=== PATIENT | male | born 1985 | race Caucasian/White ===

== ENCOUNTER 2016-09-26 06:11 | Emergency (ER) | payer MEDICAID ==
[~2016-09-26] VITALS: Ht 185.4 cm; Wt 103.8 kg
[~2016-09-26 06:11] MED LIST: ALBU8.5H5 INH; AMOX-291 PO; AMOX1TAB64 PO; BACL-19 PO; FLUO40CA9 PO; FOLI-17 PO; HYDR-3240 PO; HYDR50TA13 PO; IBUP800T PO; LORA-446 PO; ONDA4TAB7 PO; OXYC-302 PO; PROM25TA10 PO; QUET25TA PO; THIA100T10 PO; THIA100T6 PO
[2016-09-26] MEDS ORDERED: ONDANSETRON ODT 4 MG ONE (06:29)
[2016-09-26] MEDS ORDERED: ONDANSETRON ODT 4 MG PO ONE (06:30)
[2016-09-26 07:00] VITALS: BP 127/77
== END 2016-09-26 07:10 | disposition home or self-care (01) ==
LOC: ED 07:04
DX: J41.1 Mucopurulent chronic bronchitis (principal); F10.20 Alcohol dependence, uncomplicated; Y90.9 Presence of alcohol in blood, level not specified
CPT/HCPCS: 71020; 99284; Q0162

== ENCOUNTER 2016-11-04 20:40 | Emergency (ER) | payer MEDICAID | END 2016-11-04 22:09 | LOC: ED 20:40 | DX: S90.811A Abrasion, right foot, initial encounter (principal); J45.909 Unspecified asthma, uncomplicated; Z88.6 Allergy status to analgesic agent; Z90.49 Acquired absence of other specified parts of digestive tract; X50.9XXA Other and unspecified overexertion or strenuous movements or postures, initial encounter; Y93.89 Activity, other specified; Y99.8 Other external cause status; Y92.89 Other specified places as the place of occurrence of the external cause | CPT/HCPCS: 99282 ==

== ENCOUNTER 2017-03-31 09:55 | Emergency (ER) | payer MEDICAID ==
[~2017-03-31] VITALS: Ht 185.4 cm; Wt 99.1 kg
[~2017-03-31 09:55] MED LIST changes: +IBUP-1223 PO; -IBUP800T PO
[2017-03-31] MEDS ORDERED: MAALOX/HYOSCYAMINE/LIDOCAINE 45 ML BTL ONE (10:25)
[2017-03-31] MEDS ORDERED: ONDANSETRON 2MG/ML, 2ML ONE (10:25)
[2017-03-31] MEDS ORDERED: FAMOTIDINE 20 MG/2 ML ONE (10:25)
[2017-03-31] MEDS ORDERED: FAMOTIDINE 20 MG/2 ML IVP ONE (10:30)
[2017-03-31] MEDS ORDERED: ONDANSETRON 2MG/ML, 2ML IVPush ONE (10:30)
[2017-03-31] MEDS ORDERED: SODIUM CHLORIDE 0.9% 1,000ML IVBOLUS ONE (10:30)
[2017-03-31] MEDS ORDERED: MAALOX/HYOSCYAMINE/LIDOCAINE 45 ML BTL PO ONE (10:30)
[2017-03-31 10:32] LABS: HEMOGLOBIN 17.4 g/dL (13.7-18.0); WHITE BLOOD COUNT 7.3 x10^3/uL (3.4-10)
[2017-03-31 10:39] VITALS: BP 137/82
[2017-03-31 10:45] LABS: BLOOD UREA NITROGEN 15 mg/dL (7-18)
[2017-03-31 10:48] LABS: ASPARTATE AMINO TRANSFERASE 23 U/L (15-37)
== END 2017-03-31 12:22 | disposition home or self-care (01) ==
LOC: ED 10:42
DX: R10.13 Epigastric pain (principal); J45.909 Unspecified asthma, uncomplicated; Z90.49 Acquired absence of other specified parts of digestive tract
CPT/HCPCS: 36415; 80053; 83690; 85025; 96361; 96374; 96375; 99284; J2405; J7030; S0028

== ENCOUNTER 2017-10-06 06:25 | Emergency (ER) | payer MEDICAID, OTHER ==
[~2017-10-06] VITALS: Ht 185.4 cm; Wt 105.9 kg
[2017-10-06 07:21] LABS: MICROSCOPIC AUTO
[2017-10-06 07:22] LABS: CULTURE INDICATED? NO
[2017-10-06 07:32] LABS: BASOPHILS # (AUTO) 0.01 x10^3/uL (0-0.1); BASOPHILS % (AUTO) 0 % (0-1); EOSINOPHILS # (AUTO) 0.04 x10^3/uL (0-0.4); EOSINOPHILS % (AUTO) 1 % (1-7); LYMPHOCYTES # (AUTO) 0.93 x10^3/uL (1-3.4); LYMPHOCYTES % (AUTO) 14 % (22-44); MD NO; MEAN CORPUSCULAR HEMOGLOBIN 31.1 pg (27.5-34.5); MEAN CORPUSCULAR HGB CONC 33.9 g/dL (33.2-36.2); MEAN CORPUSCULAR VOLUME 91.6 fL (81-97); MEAN PLATELET VOLUME 6.7 fL (7.4-10.4); MONOCYTES # (AUTO) 0.61 x10^3/uL (0.2-0.8); MONOCYTES % (AUTO) 9 % (2-9); NEUTROPHILS # (AUTO) 5.06 x10^3/uL (1.8-6.8); NEUTROPHILS % (AUTO) 76 % (42-75); PLATELET COUNT 282 x10^3/uL (130-400); RED BLOOD COUNT 5.17 x10^6/uL (4.38-5.82); RED CELL DISTRIBUTION WIDTH 13.4 % (9.4-14.8)
[2017-10-06 07:41] LABS: ALANINE AMINOTRANSFERASE 27 U/L (12-78); ANION GAP 8 mmol/L (5-15); CALCIUM 8.5 mg/dL (8.5-10.1); CHLORIDE 110 mmol/L (98-107); CREATININE 1.03 mg/dL (0.7-1.3)
[2017-10-06 07:44] LABS: ALKALINE PHOSPHATASE 71 U/L (45-117); BILIRUBIN,TOTAL 1.2 mg/dL (0.2-1.0); TOTAL PROTEIN 7.6 g/dL (6.4-8.2)
[2017-10-06] MEDS ORDERED: TAMSULOSIN 0.4 MG CAP.ER.24H ONE (08:39)
[2017-10-06] MEDS ORDERED: KETOROLAC 30 MG/1 ML ONE (08:39)
[2017-10-06 08:48] VITALS: BP 123/68
[2017-10-06] MEDS ORDERED: KETOROLAC 30 MG/1 ML IVPush ONE (09:00)
[2017-10-06] MEDS ORDERED: TAMSULOSIN 0.4 MG CAP.ER.24H PO ONE (09:00)
[2017-10-06] MEDS ORDERED: KETOROLAC 30 MG/1 ML IM ONE (09:00)
== END 2017-10-06 09:04 | disposition home or self-care (01) ==
LOC: ED 08:58
DX: N20.0 Calculus of kidney (principal); N23 Unspecified renal colic; J45.909 Unspecified asthma, uncomplicated; F10.20 Alcohol dependence, uncomplicated; F31.9 Bipolar disorder, unspecified; Z90.49 Acquired absence of other specified parts of digestive tract
CPT/HCPCS: 36415; 74176; 80053; 81001; 85025; 93005; 96372; 99285; J1885; Q0177

== ENCOUNTER 2018-03-05 00:41 | Emergency (ER) | payer OTHER ==
[~2018-03-05] VITALS: Ht 185.4 cm; Wt 104.3 kg
[~2018-03-05 00:41] MED LIST changes: -THIA100T6 PO; +THIA100T67 PO
[2018-03-05 00:44] VITALS: BP 139/91
== END 2018-03-05 01:22 | disposition left against medical advice (07) ==
LOC: ED 01:00
DX: K29.21 Alcoholic gastritis with bleeding (principal); F10.120 Alcohol abuse with intoxication, uncomplicated; Z90.49 Acquired absence of other specified parts of digestive tract; F31.9 Bipolar disorder, unspecified; Z72.9 Problem related to lifestyle, unspecified
CPT/HCPCS: 99281

== ENCOUNTER 2019-08-05 11:22 | Emergency (ER) | payer SELFPAY ==
[~2019-08-05] VITALS: Ht 185.4 cm; Wt 109.9 kg
[~2019-08-05 11:22] MED LIST changes: -HYDR50TA13 PO; +HYDR50TA99 PO; -QUET25TA PO; +QUET25TA7 PO
[2019-08-05] MEDS ORDERED: SODIUM CHLORIDE FLUSH 10ML SYR IVF ONE (12:00)
[2019-08-05] MEDS ORDERED: DIPHENHYDRAMINE 50 MG/ML, 1ML IVPush ONE (12:00)
[2019-08-05] MEDS ORDERED: METOCLOPRAMIDE 5 MG/ML, 2ML IVPush ONE (12:00)
[2019-08-05] MEDS ORDERED: DIPHENHYDRAMINE 50 MG/ML, 1ML ONE (12:14)
[2019-08-05] MEDS ORDERED: METOCLOPRAMIDE 5 MG/ML, 2ML ONE (12:15)
[2019-08-05 12:31] LABS: BASOPHILS # (AUTO) 0.07 x10^3/uL (0-0.1); BASOPHILS % (AUTO) 1 % (0-1); EOSINOPHILS # (AUTO) 0.01 x10^3/uL (0-0.4); EOSINOPHILS % (AUTO) 0 % (1-7); LYMPHOCYTES # (AUTO) 1.49 x10^3/uL (1-3.4); LYMPHOCYTES % (AUTO) 28 % (22-44); MD NO; MEAN CORPUSCULAR HEMOGLOBIN 31.6 pg (27.5-34.5); MEAN CORPUSCULAR HGB CONC 34.3 g/dL (33.2-36.2); MEAN CORPUSCULAR VOLUME 92.2 fL (81-97); MEAN PLATELET VOLUME 7.1 fL (7.4-10.4); MONOCYTES # (AUTO) 0.36 x10^3/uL (0.2-0.8); MONOCYTES % (AUTO) 7 % (2-9); NEUTROPHILS # (AUTO) 3.43 x10^3/uL (1.8-6.8); NEUTROPHILS % (AUTO) 64 % (42-75); PLATELET COUNT 345 x10^3/uL (130-400); RED BLOOD COUNT 5.26 x10^6/uL (4.38-5.82); RED CELL DISTRIBUTION WIDTH 13.5 % (9.4-14.8)
[2019-08-05 12:41] LABS: ALBUMIN 3.8 g/dL (3.4-5.0); ANION GAP 8 mmol/L (5-15); CALCIUM 8.3 mg/dL (8.5-10.1); CHLORIDE 110 mmol/L (98-107)
[2019-08-05 12:46] LABS: ALANINE AMINOTRANSFERASE 64 U/L (12-78); ALKALINE PHOSPHATASE 82 U/L (45-117); BILIRUBIN,TOTAL 0.6 mg/dL (0.2-1.0); CREATININE 1.09 mg/dL (0.7-1.3); TOTAL PROTEIN 7.5 g/dL (6.4-8.2)
--- NOTE | 2019-08-05 13:33 | NUR ---
TASK RN, COVERING PRIMARY MEAL BREAK. NGT 16 FR PLACED, WITH CLEAR FLUID OUTPUT. GASTROCCULT SPECIMEN NEGATIVE. PER ERP, NGT FLUSHED AND THEN DISCONTINUED. PT TOLERATED PROCEDURE WELL. REPORT TO PRIMARY RN.
--- NOTE | 2019-08-05 14:26 | NUR ---
MULTI ATTEMPTS TO GET UA PT TRYING
[2019-08-05 14:53] LABS: MICROSCOPIC INDICATED
[2019-08-05 15:05] VITALS: BP 142/78
[2019-08-05 15:14] LABS: CULTURE INDICATED? NO
== END 2019-08-05 16:16 | disposition home or self-care (01) ==
LOC: ED 16:00
DX: H65.03 Acute serous otitis media, bilateral (principal); K29.20 Alcoholic gastritis without bleeding; R10.9 Unspecified abdominal pain; R11.2 Nausea with vomiting, unspecified; R19.7 Diarrhea, unspecified; Z90.49 Acquired absence of other specified parts of digestive tract
CPT/HCPCS: 36415; 80053; 81001; 83690; 85025; 96374; 96375; 99284; J1200; J2765

== ENCOUNTER 2019-10-12 08:45 | Emergency (ER) | payer SELFPAY ==
[~2019-10-12] VITALS: Ht 185.4 cm; Wt 112.0 kg
[2019-10-12] MEDS ORDERED: ACETAMINOPHEN 500 MG TABLET PO ONE (10:30)
[2019-10-12 11:21] LABS: BASOPHILS # (AUTO) 0.04 x10^3/uL (0-0.1); BASOPHILS % (AUTO) 1 % (0-1); EOSINOPHILS # (AUTO) 0.04 x10^3/uL (0-0.4); EOSINOPHILS % (AUTO) 1 % (1-7); LYMPHOCYTES % (AUTO) 24 % (22-44); MD NO; MEAN CORPUSCULAR HEMOGLOBIN 31.4 pg (27.5-34.5); MEAN CORPUSCULAR HGB CONC 33.9 g/dL (33.2-36.2); MEAN CORPUSCULAR VOLUME 92.6 fL (81-97); MEAN PLATELET VOLUME 6.9 fL (7.4-10.4); MONOCYTES # (AUTO) 0.48 x10^3/uL (0.2-0.8); MONOCYTES % (AUTO) 7 % (2-9); NEUTROPHILS # (AUTO) 5.03 x10^3/uL (1.8-6.8); NEUTROPHILS % (AUTO) 68 % (42-75); PLATELET COUNT 317 x10^3/uL (130-400); RED BLOOD COUNT 5.14 x10^6/uL (4.38-5.82); RED CELL DISTRIBUTION WIDTH 13.6 % (9.4-14.8)
[2019-10-12] MEDS ORDERED: ACETAMINOPHEN 500 MG TABLET ONE (11:23)
[2019-10-12 11:25] VITALS: BP 139/95
[2019-10-12 11:25] LABS: ALANINE AMINOTRANSFERASE 71 U/L (12-78); ALBUMIN 3.9 g/dL (3.4-5.0); CALCIUM 9.1 mg/dL (8.5-10.1); CREATININE 0.99 mg/dL (0.7-1.3)
[2019-10-12 11:29] LABS: ANION GAP 6 mmol/L (5-15); CHLORIDE 106 mmol/L (98-107)
[2019-10-12 11:30] LABS: ALKALINE PHOSPHATASE 84 U/L (45-117); BILIRUBIN,TOTAL 1.1 mg/dL (0.2-1.0); TOTAL PROTEIN 7.9 g/dL (6.4-8.2); TROPONIN I < 0.015 ng/mL (0.000-0.045)
== END 2019-10-12 11:57 | disposition home or self-care (01) ==
LOC: ED 10:19
DX: R07.2 Precordial pain (principal); R61 Generalized hyperhidrosis; I25.2 Old myocardial infarction
CPT/HCPCS: 36415; 71045; 80053; 84484; 85025; 93005; 99285